=== PATIENT | female | born 1950 | race Caucasian/White ===

== ENCOUNTER 2017-09-06 13:46 | Outpatient (RCR) | payer BC ==
[~2017-09-06 13:46] MED LIST: DIOVAN PO; ESTRACE1 MG PO; INTEGRA PLUS C1 EACH PO; LIBRAX CAPSULE1 EACH PO; LIOTHYRONINE SO5 MCG PO; NEXIUM40 MG PO; SYNTHROID150 MCG PO
== END 2017-09-18 ==
LOC: OT 13:46
PROVIDERS: ATTEND Surgery Surgery of the Hand
DX: S63.8X1A Sprain of other part of right wrist and hand, initial encounter (principal)